=== PATIENT | male | born 1955 | race Caucasian/White ===

== ENCOUNTER 2016-12-02 21:01 | Emergency (ER) | payer BC ==
--- NOTE | ~2016-12-02 | CR170 ---
[facility] A Service of [facility] RADIOLOGY TEXT RESULTS PATIENT: MARI GUTIERREZ LOCATION: SED : 59 UNIT #: [id number] AGE: [address]: CHAD NUNEZ SEX: M ORDER DR: [id number] [place] [id number] E MR#: [id number] Acc #: [id number] NAME: MARI GUTIERREZ : 1955 SEX: M STUDY DATE/TIME: 12/02/2016 20:58 UNIT: SED ROOM: STUDY DESCRIPTION: CR Knee 2 Views Rt Attending Physician: Chad Nunez Ordering Physician: Physician Non-Staff Primary Care Physician: Mulu Merino A.P.R.N. MEDICAL IMAGING REPORT This report is preliminary unless electronic signature is present. EXAM 3 views right knee, 12/02/2016 HISTORY Fell today. Knee pain. FINDINGS Subcutaneous air is demonstrated within the prepatellar soft tissues suggesting laceration defect. No acute fracture or joint dislocation is seen. Tiny posterior patellar osteophytes are present. IMPRESSION 1. Subcutaneous air in the prepatellar soft tissues suggesting laceration defect. No retained radiopaque foreign body. 2. Mild degenerative spurring of posterior aspect of the patella. No acute osseous abnormality. 3. Tiny enthesophyte formation at the quadriceps tendon insertion, anterior superior patella, not included in the body of the report. 1. Dictated by... Diane Drummond M.D. THIS IS AN ELECTRONICALLY VERIFIED REPORT Diane Drummond M.D. at 12/03/2016 10:02 AM MEGHANN/fuentes TD: 12/03/2016 09:17 JOB #: [id number] MEDICAL IMAGING REPORT
[~2016-12-02 21:01] MED LIST: CENTRUM SILVER PO; CYMBALTA PO
== END 2016-12-02 22:00 | disposition home or self-care (01) ==
LOC: SED 21:01
DX: S81.011A Laceration without foreign body, right knee, initial encounter (principal); Z23 Encounter for immunization; F41.9 Anxiety disorder, unspecified; Z98.890 Other specified postprocedural states; W19.XXXA Unspecified fall, initial encounter; Y93.54 Activity, bowling; Y92.89 Other specified places as the place of occurrence of the external cause
CPT/HCPCS: 12032; 73560; 90471; 90715; 99283